=== PATIENT | male | born 1960 | race Asian ===

== ENCOUNTER → 2023-10-28 07:53 | Outpatient (REF) | payer BC, SELFPAY ==
[2023-10-28 09:04] LABS: % Basophils 0.5 % (0-2); % Eosinophils 1.5 % (0-6); % Immature Granulocytes 0.3 % (0-0.5); % Lymphocytes 28.8 % (20.5-51.1); % Monocytes 7.3 % (1.7-9.3); % Neutrophils 61.6 % (42.2-75.2); Absolute Eosinophils 0.1 10^3/uL (0-0.7); Absolute Lymphocytes 1.7 10^3/uL (1.2-3.4); Absolute Monocytes 0.4 10^3/uL (0.1-0.6); Absolute Neutrophils 3.7 10^3/uL (1.4-6.5); Hematocrit 47.5 % (39.0-52.0); Hemoglobin 16.8 g/dL (13.0-18.0); Mean Corp Hgb Conc. 35.4 g/dL (33.0-37.0); Mean Corpuscular Hgb 31.2 pg (27.0-31.0); Mean Corpuscular Volume 88.3 fL (80.0-94.0); Mean Platelet Volume 10.4 fL (7.4-10.4); Nucleated Red Blood Cells % 0 % (-); Platelet Count 182 10^3/uL (130-400); Red Blood Cell Count 5.38 10^6/uL (4.70-6.10); Red Cell Dist. Width 12.4 % (11.5-14.5)
[2023-10-28 10:33] LABS: ALT (SGPT) 32 U/L (0-50); AST (SGOT) 28 U/L (17-59); Albumin 4.6 g/dl (3.5-5.0); Alkaline Phosphatase 65 U/L (38-126); Blood Urea Nitrogen 18 mg/dl (9-20); Calcium 9.2 mg/dl (8.4-10.2); Carbon Dioxide 27 mmol/L (22-30); Chloride 104 mmol/L (98-107); Glucose 120 mg/dl (70-99); HDL Cholesterol 32 mg/dl; LDL Cholesterol, Calculated 120 mg/dl; Potassium 4.2 mmol/L (3.5-5.1); Sodium 138 mmol/L (135-145); Total Bilirubin 1.1 mg/dl (0.2-1.3); Total Cholesterol 205 mg/dl (50-199); Total Protein 7.4 g/dl (6.3-8.2); Triglyceride 267 mg/dl (10-149); Very Low Density Lipoprotein 53 mg/dl (0-30); eGFR > 60.00
[2023-10-28 11:30] LABS: Glycohemoglobin (HgbA1c) 6.6 % (4.0-5.6)
== END ==
LOC: HWLAB 07:53
PROVIDERS: ATTENDING PHYSICIAN Internal Medicine
DX: E78.2 Mixed hyperlipidemia (principal); E11.9 Type 2 diabetes mellitus without complications
CPT/HCPCS: 36415; 80053; 80061; 83036; 85025

== ENCOUNTER → 2024-03-16 09:53 | Outpatient (REF) | payer OTHER, SELFPAY ==
[2024-03-16 15:22] LABS: Mumps Virus IgG Positive; Rubeola (Measles) IgG Positive; Varicella Zoster IgG (VZV) Positive
[2024-03-16 19:22] LABS: Rubella Positive
[2024-03-18 12:32] LABS: Quantiferon Mitogen minus NIL 9.96 IU/mL; Quantiferon NIL 0.04 IU/mL; Quantiferon TB Gold Plus Negative (Negative)
== END ==
LOC: REG 09:53
PROVIDERS: ATTENDING PHYSICIAN Nurse Practitioner Family
DX: Z23 Encounter for immunization (principal)
CPT/HCPCS: 36415; 86480; 86735; 86762; 86765; 86787

== ENCOUNTER → 2025-01-03 07:29 | Outpatient (REF) | payer BC, SELFPAY ==
[2025-01-03 09:27] LABS: % Basophils 0.3 % (0-2); % Eosinophils 2.1 % (0-6); % Immature Granulocytes 0.2 % (0-0.5); % Lymphocytes 15.8 % (20.5-51.1); % Neutrophils 70.6 % (42.2-75.2); Absolute Eosinophils 0.1 10^3/uL (0-0.7); Absolute Monocytes 0.7 10^3/uL (0.1-0.6); Absolute Neutrophils 4.5 10^3/uL (1.4-6.5); Hematocrit 46.3 % (39.0-52.0); Hemoglobin 15.9 g/dL (13.0-18.0); Mean Corp Hgb Conc. 34.3 g/dL (33.0-37.0); Mean Corpuscular Volume 90.3 fL (80.0-94.0); Mean Platelet Volume 10.9 fL (7.4-10.4); Nucleated Red Blood Cells % 0 % (-); Platelet Count 149 10^3/uL (130-400); Red Blood Cell Count 5.13 10^6/uL (4.70-6.10); Red Cell Dist. Width 12.6 % (11.5-14.5); White Blood Cell Count 6.3 10^3/uL (4.8-10.8)
[2025-01-03 10:09] LABS: Glycohemoglobin (HgbA1c) 6.2 % (4.0-5.6)
[2025-01-03 10:16] LABS: ALT (SGPT) 35 U/L (0-50); AST (SGOT) 36 U/L (17-59); Albumin 4.5 g/dl (3.5-5.0); Alkaline Phosphatase 60 U/L (38-126); Blood Urea Nitrogen 20 mg/dl (9-20); Calcium 9.3 mg/dl (8.4-10.2); Carbon Dioxide 26 mmol/L (22-30); Chloride 109 mmol/L (98-107); Glucose 129 mg/dl (70-99); HDL Cholesterol 34 mg/dl; LDL Cholesterol, Calculated 145 mg/dl; Potassium 4.2 mmol/L (3.5-5.1); Sodium 141 mmol/L (135-145); Total Bilirubin 1.4 mg/dl (0.2-1.3); Total Cholesterol 195 mg/dl (50-199); Total Protein 7.2 g/dl (6.3-8.2); Triglyceride 80 mg/dl (10-149); Very Low Density Lipoprotein 16 mg/dl (0-30); eGFR > 60.00
[2025-01-03 10:43] LABS: Microalbumin, Random Urine 1.9 mg/dl (0.6-1.7)
[2025-01-03 11:31] LABS: Microalbumin/creatinine Ratio 4.8 mg/g
== END ==
LOC: HWLAB 07:29
PROVIDERS: ATTENDING PHYSICIAN Internal Medicine
DX: E11.9 Type 2 diabetes mellitus without complications (principal); Z12.11 Encounter for screening for malignant neoplasm of colon
CPT/HCPCS: 36415; 80053; 80061; 82043; 82570; 83036; 83520; 85025